=== PATIENT | male | born 1975 | race African-American/Black ===

== ENCOUNTER 2017-07-24 23:20 | Emergency (ER) | payer MEDICAID, OTHER ==
[~2017-07-24] VITALS: Ht 180.3 cm; Wt 102.0 kg
[2017-07-24 23:27] VITALS: BP 145/95
== END 2017-07-24 23:56 | disposition home or self-care (01) ==
LOC: ER 23:20
DX: R07.89 Other chest pain (principal); R03.0 Elevated blood-pressure reading, without diagnosis of hypertension; Z98.890 Other specified postprocedural states
CPT/HCPCS: 93005; 99283; Z7610

== ENCOUNTER 2022-04-27 20:07 | Emergency (ER) | payer MEDICAID, OTHER ==
[~2022-04-27] VITALS: Ht 180.3 cm; Wt 108.8 kg
[2022-04-27 20:25] VITALS: BP 152/86
[2022-04-27] MEDS ORDERED: IBUPROFEN 600MG TABLET PO ONE (21:45)
[2022-04-27] MEDS ORDERED: IBUP-2029 MT (23:19)
== END 2022-04-27 21:30 | disposition home or self-care (01) ==
LOC: ER 20:07
DX: S89.92XA Unspecified injury of left lower leg, initial encounter (principal); X58.XXXA Exposure to other specified factors, initial encounter; Y93.66 Activity, soccer; Y92.89 Other specified places as the place of occurrence of the external cause; Y99.8 Other external cause status
CPT/HCPCS: 93971; 99284